=== PATIENT | female | born 1990 | race Two or more races ===

== ENCOUNTER 2020-05-23 11:45 | Emergency (ER) | payer OTHER ==
[2020-05-23 12:19] LABS: BASOPHILS # (AUTO) 0.1 10^3/uL (0.0-0.1); BASOPHILS % (AUTO) 0.5 %; EOSINOPHILS # (AUTO) 0.2 10^3/uL (0.0-0.7); EOSINOPHILS % (AUTO) 1.6 %; LYMPHOCYTES # (AUTO) 2.9 10^3/uL (1.5-3.5); LYMPHOCYTES % (AUTO) 21.4 %; MEAN CORPUSCULAR HEMOGLOBIN 29.8 pg (27.0-31.0); MEAN CORPUSCULAR HGB CONC 34.6 g/dL (32.0-36.0); MEAN CORPUSCULAR VOLUME 86.2 fL (81.0-99.0); MEAN PLATELET VOLUME 9.4 fL (7.9-10.8); MONOCYTES # (AUTO) 0.6 10^3/uL (0.0-1.0); MONOCYTES % (AUTO) 4.4 %; NEUTROPHILS # (AUTO) 9.5 10^3/uL (1.5-6.6); NEUTROPHILS % (AUTO) 71.4 %; PLT - PLATELET COUNT 414 10^3/uL (130-450); RED BLOOD COUNT 4.36 10^6/uL (4.20-5.40); WHITE BLOOD COUNT 13.3 x10^3/uL (4.8-10.8)
--- NOTE | 2020-05-23 12:27 | ED Physician Documentation ---
PD HPI FEMALE - Stated complaint Stated Complaint: FEMALE - Chief complaint Chief Complaint: Abd Pain - History obtained from History obtained from: Patient - History of Present Illness Timing - onset: How many hours ago (about 1 1/2) Timing - duration: Minutes (had some mucous and red blood vaginally after awakening this morning about 10 am, noted about a pads worth of blood in toilet. Does not have pad on now, and has not noted any vaginal bleeding enroute or while here. No abd pains.) Timing - details: Abrupt onset, Now resolved Associated symptoms: Vaginal bleeding. No: Fever, Abdominal pain, Back pain, Vaginal discharge, Dysuria Contributing factors: (6-8 weeks by dates. was not remembering exact date of LMP.) Similar symptoms before: Has not had sx before Recently seen: Not recently seen (has first OB appt tomorrow.) Review of Systems Constitutional: denies: Fever Nose: denies: Rhinorrhea / runny nose, Congestion Throat: denies: Sore throat Respiratory: denies: Cough GI: denies: Abdominal Pain, Nausea, Vomiting, Diarrhea : reports: Vaginal bleeding (brief this morning), Now EGA. denies: Dysuria, Discharge Neurologic: denies: Generalized weakness, Near syncope PD PAST MEDICAL HISTORY - Past Medical History Past Medical History: No - Allergies Allergies/Adverse Reactions: Allergies Allergy/AdvReac Type Severity Reaction Status Date / Time No Known Drug Allergies Allergy Verified 05/23/20 11:48 PD ED PE NORMAL - Vitals Vital signs reviewed: Yes - General General: Alert and oriented X 3, No acute distress, Well developed/nourished - Neck Neck: Supple, no meningeal sign, No adenopathy - Cardiac Cardiac: RRR, No murmur - Respiratory Respiratory: Clear bilaterally - Abdomen Abdomen: Normal bowel sounds, Soft, Non distended, No organomegaly - Female Female : Deferred, Other (bedside U?S showed GS intrauterine measured 7w4d. I did not see heart beat but common for these dates. No pelvic free fluid. ) - Back Back: No CVA TTP - Derm Derm: Normal color, Warm and dry - Extremities Extremities: Normal ROM s pain, No edema, No calf tenderness / cord - Neuro Neuro: Alert and oriented X 3, No motor deficit Results - Vitals Vitals: Vital Signs - 24 hr 05/23/20 05/23/20 05/23/20 11:48 11:55 13:15 Temperature 36.7 C 37.1 C 37.2 C Heart Rate 86 87 96 Respiratory 16 20 18 Rate Blood Pressure 138/83 H 131/73 H 124/85 H O2 Saturation 98 98 98 Oxygen O2 Source Room air - Labs Labs: Laboratory Tests 05/23/20 05/23/20 05/23/20 11:55 12:13 12:13 WBC 13.3 H RBC 4.36 Hgb 13.0 Hct 37.6 MCV 86.2 MCH 29.8 MCHC 34.6 RDW 13.0 Plt Count 414 MPV 9.4 Neut # (Auto) 9.5 H Lymph # (Auto) 2.9 [place] # (Auto) 0.6 Eos # (Auto) 0.2 Baso # (Auto) 0.1 Absolute Nucleated RBC 0.00 Nucleated RBC % 0.0 Sodium 134 L Potassium 4.1 Chloride 100 L Carbon Dioxide 26 Anion Gap 8.0 BUN 9 Creatinine 0.7 Estimated GFR (MDRD) 97 Glucose 92 Calcium 9.0 Total Bilirubin 0.6 AST 15 ALT 15 Alkaline Phosphatase 87 Total Protein 8.2 Albumin 3.7 Globulin 4.5 H Albumin/Globulin Ratio 0.8 L Lipase 25 HCG, Quant 20803.00 PD MEDICAL DECISION MAKING - ED course Complexity details: reviewed results (bedside U/S by me showing gestational sac measuring 7w4d. heart beat not seen but reasonable with age related. No pelvic free fluid seen. She has OB appt tomorrow so deferred formal U/S. ), considered differential, d/w patient Departure - Departure Disposition: 01 Home, Self Care Clinical Impression: Vaginal bleeding affecting early Condition: Stable Record reviewed to determine appropriate education?: Yes Follow-Up: Tessa Vasquez PA [Primary Care Provider] - [facility] [Provider Group] Comments: At this point your appears in the normal location in the uterus. Your blood count is good. Stay well-hydrated. Light activity is okay but nothing vigorous today. Tylenol if needed for pains or cramps. Follow-up with FINANCIAL MANAGER tomorrow as planned. Return if significant bleeding cramping pains or fever in the meanwhile. Discharge Date/Time: 05/23/20 13:19
[2020-05-23 12:32] LABS: ALBUMIN 3.7 g/dL (3.2-5.5); ALBUMIN/GLOBULIN RATIO 0.8 (1.0-2.2); BILIRUBIN,TOTAL 0.6 mg/dL (0.2-1.0); CREATININE 0.7 mg/dL (0.4-1.0); TOTAL PROTEIN 8.2 g/dL (6.7-8.2)
[2020-05-23] MEDS ORDERED: ACETAMINOPHEN 325 MG TABLET PO STA (13:03)
[2020-05-23 13:16] VITALS: BP 124/85
== END 2020-05-23 13:19 | disposition home or self-care (01) ==
LOC: ED 11:45
DX: O20.9 Hemorrhage in early pregnancy, unspecified (principal); Z3A.01 Less than 8 weeks gestation of pregnancy
CPT/HCPCS: 80053; 83690; 84702; 85025; 99283; 99284; A9270; 36415; 86900; 86901

== ENCOUNTER 2020-06-01 21:10 | Outpatient (CLI) | payer OTHER ==
--- NOTE | 2020-06-02 14:05 | Ultrasound Report ---
PROCEDURE: OB First Trimester INDICATIONS: , VAGINAL BLEEDING, 1ST TRIMESTER OUTSIDE/PRIOR DATING DATA: Last menstrual period (LMP): 03/18/2020. LMP-based estimated date of delivery (ACOSTA): 12/23/2020. First dating scan (date and location): 06/01/2020. Estimated date of delivery (ACOSTA) from first dating scan: 01/03/2021. TECHNIQUE: Real-time scanning was performed of the fetus and maternal pelvic organs, with image documentation. COMPARISON: None FINDINGS: Embryo: There is an intrauterine gestational sac seen, with a pole present, which measures 2.5 cm, which corresponds to an estimated gestational age of 9 weeks 0 days. cardiac activity is s een, with a measured heart rate of 187 bpm. No significant perigestational/subchorionic hemorrhage can be seen. A normal-appearing yolk sac is seen. Measurement variability in dating: +/- 4 weeks by LMP, +/- 7 days by mean sac diameter (use before 6 weeks gestation if crown-rump length not able to be measured), +/- 5 days by crown-rump length (6-12 weeks gestation). Maternal organs: Ovaries are unremarkable. Limited images through the kidneys demonstrate no hydron ephrosis. IMPRESSION: Single live intrauterine , without an anatomic abnormality identified. No significant discrepancy is found between the estimated gestational age based upon these images and the estimated gestational age based upon the given date of the last menstrual period. In this patient with a given history of first trimester bleeding, no significant subchorionic hemorrh age can be seen. Reviewed by: Earnest Ochoa MD on 06/02/2020 1:03 PM [place] Approved by: Earnest Ochoa MD on 06/02/2020 1:03 PM [place] Station ID: [id number]
--- NOTE | 2020-06-02 14:22 | Ultrasound Report ---
PROCEDURE: OB Transvaginal INDICATIONS: , VAGINAL BLEEDING, 1ST TRIMESTER OUTSIDE/PRIOR DATING DATA: Last menstrual p eriod (LMP): 03/18/2020. LMP-based estimated date of delivery (ACOSTA): 12/23/2020. First dating scan (date and location): 06/01/2020. Estimated date of delivery (ACOSTA) from first dating scan: 01/03/2021. TECHN IQUE: Real-time scanning was performed of the fetus and maternal pelvic organs, with image documentat ion. COMPARISON: None FINDINGS: Embryo: There is an intrauterine gestational sac seen, with a feta l pole present, which measures 2.5 cm, which corresponds to an estimated gestational age of 9 weeks 0 days. cardiac activity is seen, with a measured heart rate of 187 bpm. No significant perigest ational/subchorionic hemorrhage can be seen. A normal-appearing yolk sac is seen. Measurement variab ility in dating: +/- 4 weeks by LMP, +/- 7 days by mean sac diameter (use before 6 weeks gestation if crown-rump length not able to be measured), +/- 5 days by crown-rump length (6-12 weeks gestation). Maternal organs: Ovaries are unremarkable. Limited images through the kidneys demonstrate no hydrone phrosis. IMPRESSION: Single live intrauterine , without an anatomic abnormality identif ied. No significant discrepancy is found between the estimated gestational age based upon these imag es and the estimated gestational age based upon the given date of the last menstrual period. In this patient with a given history of first trimester bleeding, no significant subchorionic hemorrhage can be seen. Reviewed by: Earnest Ochoa MD on 06/02/2020 1:21 PM [place] Approved by: Earnest Ochoa MD on 06/02/2020 1:21 PM [place] Station ID: [id number]
== END 2020-06-01 21:11 | disposition home or self-care (01) ==
LOC: DI 21:10
PROVIDERS: ATTEND Obstetrics & Gynecology
DX: O46.91 Antepartum hemorrhage, unspecified, first trimester (principal); Z3A.09 9 weeks gestation of pregnancy
CPT/HCPCS: 76801; 76817

== ENCOUNTER 2020-07-03 09:45 | Outpatient (CLI) | payer OTHER ==
[2020-07-03 10:19] LABS: BASOPHILS # (AUTO) 0.1 10^3/uL (0.0-0.1); BASOPHILS % (AUTO) 0.4 %; EOSINOPHILS # (AUTO) 0.2 10^3/uL (0.0-0.7); EOSINOPHILS % (AUTO) 1.2 %; LYMPHOCYTES % (AUTO) 22.6 %; MEAN CORPUSCULAR HEMOGLOBIN 29.9 pg (27.0-31.0); MEAN CORPUSCULAR HGB CONC 34.5 g/dL (32.0-36.0); MEAN CORPUSCULAR VOLUME 86.8 fL (81.0-99.0); MEAN PLATELET VOLUME 9.7 fL (7.9-10.8); MONOCYTES # (AUTO) 0.7 10^3/uL (0.0-1.0); MONOCYTES % (AUTO) 5.4 %; NEUTROPHILS # (AUTO) 9.1 10^3/uL (1.5-6.6); NEUTROPHILS % (AUTO) 69.6 %; PLT - PLATELET COUNT 382 10^3/uL (130-450); RED BLOOD COUNT 4.01 10^6/uL (4.20-5.40); RED CELL DISTRIBUTION WIDTH 13.1 % (12.0-15.0)
[2020-07-03 12:27] LABS: HEMOGLOBIN A1c% 5.2 % (4.27-6.07)
[2020-07-04 12:03] LABS: HEPATITIS B SURFACE ANTIGEN NON-REACTIVE (NON-REACTIVE)
[2020-07-04 13:02] LABS: HIV AG/AB 4TH GEN NON-REACTIVE (NON-REACTIVE)
== END 2020-07-03 09:46 | disposition home or self-care (01) ==
LOC: LAB 09:45
PROVIDERS: ATTEND Obstetrics & Gynecology
DX: Z34.80 Encounter for supervision of other normal pregnancy, unspecified trimester (principal); Z36.89 Encounter for other specified antenatal screening
CPT/HCPCS: 36415; 81599; 83036; 84443; 85025; 86592; 86762; 86850; 86900; 86901; 87340; 87389

== ENCOUNTER 2020-08-22 06:50 | Outpatient (CLI) | payer OTHER ==
--- NOTE | 2020-08-22 10:40 | Ultrasound Report ---
PROCEDURE: OB Detailed Eval INDICATIONS: SCREENING OUTSIDE/PRIOR DATING DATA: Last menstrual period (LMP): 03/18/2020. LMP-based estimated date of delivery (ACOSTA): 12/23/2020. First dating scan (date and location): 06/01/2020. Estimated date of delivery (ACOSTA) from first dating scan: 01/03/2021. TECHNIQUE: Real-time scanning was performed of the fetus, with image documentation and biometric measurements. Endovaginal scanning: Performed COMPARISON: 06/01/2020. FINDINGS: General: A single living intrauterine gestation is present. Presentation: Vertex Placenta: Placental position is posterior, without previa. Amniotic fluid index: 14.1 cm normal 5-24 cm.. heart rate: 149 beats per minute. Maternal cervical canal: 3.4 cm long; normal length is 2.5 cm or more. biometrics: Biparietal diameter: 20 weeks 5 days Head circumference: 20 weeks 4 days Abdominal circumference: 20 weeks 4 days Femur length: To reveal weeks 5 days Estimated gestational age from initial scan: 20 weeks 6 days. Composite gestational age from present scan: 20 weeks 6 days Estimated weight and percentile: 396 g, 56th percentile Measurement variability in biometric dating: +/- 10 days from 12-20 weeks gestation, +/- 2 weeks from 20-30 weeks gestation, +/- 3 weeks at 30 weeks gestation or later. Anatomic survey: Neuro: Ventricles are normal at less than 10 mm. Cisterna magna is normal at 3-11 mm. Cerebellum i s normal in size and morphology. Nuchal skin fold: Normal at less than 6 mm between 14 and 20 weeks gestational age. Face: Nose and lips, facial profile are normal. Spine: No evidence for spina bifida. Heart: 4-chambered heart is present, with normal ventricular outflow tracts. Diaphragm: Diaphragm is intact. Stomach: Left-sided stomach is present. Kidneys: No hydronephrosis. Normal is less than 5 mm in 2nd trimester, less than 7 mm in 3rd trimester. Cord: 3 vessel cord has orthotopic insertion. Bladder: Normal in size. Extremities: All 4 extremities are visualized. IMPRESSION: 1. Single living intrauterine with appropriate interval growth. 2. Normal anatomic survey. Reviewed by: Esther Yuen MD, PhD on 08/22/2020 10:38 AM PST Approved by: Esther Yuen MD, PhD on 08/22/2020 10:38 AM PST Station ID: [id number]
== END 2020-08-22 06:51 | disposition home or self-care (01) ==
LOC: DI 06:50
PROVIDERS: ATTEND Obstetrics & Gynecology
DX: Z36.89 Encounter for other specified antenatal screening (principal)
CPT/HCPCS: 76811

== ENCOUNTER 2020-08-30 08:00 | Outpatient (CLI) | payer OTHER ==
[2020-08-30 21:55] LABS: CANDIDA GROUP DNA NEGATIVE (NEGATIVE); CANDIDA KRUSEI DNA NEGATIVE (NEGATIVE); TRICHOMONAS VAGINALIS DNA NEGATIVE (NEGATIVE)
== END 2020-08-30 08:01 | disposition home or self-care (01) ==
LOC: LAB.R 08:00
PROVIDERS: ATTEND Nurse Practitioner Obstetrics & Gynecology
DX: N89.8 Other specified noninflammatory disorders of vagina (principal)
CPT/HCPCS: 87086; 87661; 87801

== ENCOUNTER 2020-09-03 08:00 | Outpatient (CLI) | payer OTHER ==
[2020-09-03 17:38] LABS: BILIRUBIN,URINE NEGATIVE (NEGATIVE); GLUCOSE, URINE (UA) NEGATIVE (NEGATIVE); KETONES,URINE (UA) NEGATIVE (NEGATIVE); LEUKOCYTE ESTERASE, URINE NEGATIVE (NEGATIVE); NITRITE,URINE NEGATIVE (NEGATIVE); OCCULT BLOOD,URINE SMALL (NEGATIVE); PH,URINE 5.5 PH (5.0-7.5); PROTEIN,URINE NEGATIVE (NEGATIVE); UROBILINOGEN,URINE 0.2 (NORMAL) E.U./dL (NORMAL)
[2020-09-03 17:54] LABS: CLARITY,URINE CLEAR (CLEAR)
[2020-09-03 17:55] LABS: BACTERIA,URINE Rare /HPF (None Seen); SQUAMOUS EPITHELIAL CELL,UR FEW Squamous (<= Few)
== END 2020-09-03 23:59 | disposition home or self-care (01) ==
LOC: LAB.R 08:00
PROVIDERS: ATTEND Obstetrics & Gynecology
DX: N89.8 Other specified noninflammatory disorders of vagina (principal)
CPT/HCPCS: 81001; 81599; 87086

== ENCOUNTER 2020-11-17 18:50 | Outpatient (CLI) | payer OTHER ==
--- NOTE | 2020-11-17 22:15 | Ultrasound Report ---
PROCEDURE: OB F/U or Repeat INDICATIONS: GESTATIONAL DIABETES, GROWTH OUTSIDE/PRIOR DATING DATA: Last menstrual period (LMP): 03/18/2020. LMP-based estimated date of delivery (ACOSTA): 12/23/2020. First dating scan (date and location): 06/01/2020. Estimated date of delivery (ACOSTA) from first dating scan: 01/03/2021. TECHNIQUE: Real-time scanning was performed of the fetus, with image documentation and biometric measurements. Endovaginal scanning: Not performed COMPARISON: 08/22/2020, 06/01/2020, FINDINGS: General: A single living intrauterine gestation is present. Presentation: Vertex Placenta: Placental position is posterior, without previa. Amniotic fluid index: 15.8 cm, 59th percentile for gestational age. Largest pocket 5.6 cm heart rate: 162 beats per minute. biometrics: Biparietal diameter: 8.5 cm, 34 weeks 3 days Head circumference: 30.8 cm, 34 weeks 3 days Abdominal circumference: 29.5 cm, 33 weeks 4 days Femur length: 6.4 cm, 33 weeks 1 day Estimated gestational age from initial scan: 33 weeks 2 days. Composite gestational age from present scan: 33 weeks 6 days Estimated weight and percentile: 2238 g, 52nd percentile Measurement variability in biometric dating: +/- 10 days from 12-20 weeks gestation, +/- 2 weeks from 20-30 weeks gestation, +/- 3 weeks at 30 weeks gestation or more. Other: Not applicable. IMPRESSION: Single living intrauterine fetus in vertex presentation. Normal THOMAS Expected interval growth. Reviewed by: Johnnie Ames MD on 11/17/2020 10:14 PM PST Approved by: Johnnie Ames MD on 11/17/2020 10:14 PM PST Station ID: [id number]
== END 2020-11-17 18:51 | disposition home or self-care (01) ==
LOC: DI 18:50
PROVIDERS: ATTEND Obstetrics & Gynecology
DX: O24.419 Gestational diabetes mellitus in pregnancy, unspecified control (principal); Z3A.33 33 weeks gestation of pregnancy

== ENCOUNTER 2020-12-07 18:49 | Outpatient (CLI) | payer OTHER ==
--- NOTE | 2020-12-07 22:05 | Ultrasound Report ---
PROCEDURE: OB Biophysical Profile INDICATIONS: GESTATIONAL DIABETES OUTSIDE/PRIOR DATING DATA: Last menstrual period (LMP): 03/18/2020. LMP-based estimated date of delivery (ACOSTA): 12/23/2020. First dating scan (date and location): 06/01/2020. Estimated date of delivery (ACOSTA) from first dating scan: 01/03/2021. TECHNIQUE: Real-time scanning was performed of the fetus, with image documentation and biometric nona surements. Biophysical profile was also obtained. Endovaginal scanning: Performed COMPARISON: 06/01/2020, 08/22/2020 and 11/17/2020. FINDINGS: General: A single living intrauterine gestation is present. Presentation: Vertex Placenta: Placental position is posterior, without previa. Amniotic fluid index: 14.4 cm, normal finding 11 24 cm. heart rate: 146 beats per minute. Maternal cervical canal: Not evaluated. Estimated gestational age from initial scan: 36 weeks 1 day. Biophysical profile: Tone: 2 points. Movement: 2 points. Respiration: 0 points. Largest pocket of fluid: 2 points (largest pocket 5.1 cm). Umbilical artery Doppler: SD ratio 2.0-2.85 IMPRESSION: 1. Single living intrauterine gestation. 2. Normal amniotic fluid index. 3. Biophysical score 6/8 with 0 points for respiration. 4. Normal cord Doppler. Reviewed by: Esther Yuen MD, PhD on 12/07/2020 10:04 PM PST Approved by: Esther Yuen MD, PhD on 12/07/2020 10:04 PM PST Station ID: [id number]
== END 2020-12-07 18:50 | disposition home or self-care (01) ==
LOC: DI 18:49
PROVIDERS: ATTEND Obstetrics & Gynecology
DX: O24.419 Gestational diabetes mellitus in pregnancy, unspecified control (principal); Z3A.36 36 weeks gestation of pregnancy

== ENCOUNTER 2020-12-09 14:55 | Outpatient (CLI) | payer OTHER ==
[2020-12-09 15:32] VITALS: BP 138/83
--- NOTE | 2020-12-09 16:58 | Ultrasound Report ---
PROCEDURE: OB Biophysical Profile INDICATIONS: GDM, previous BPP 03/26 OUTSIDE/PRIOR DATING DATA: Last menstrual period (LMP): 03/18/2020. LMP-based estimated date of delivery (ACOSTA): 12/23/2020. First dating scan (date and location): 814 2. Estimated date of delivery (ACOSTA) from first dating scan: 01/03/2021. TECHNIQUE: Real-time scanning was performed of the fetus, with image documentation. Biophysical pro file was also obtained. COMPARISON: 12/07/2020, 11/17/2020, 08/22/2020, 06/01/2020 FINDINGS: General: A single live intrauterine gestation is present. Presentation: Cephalic Placenta: Placental position is posterior, without previa. Amniotic fluid index: 12.7 cm, 40 for gestational age. heart rate: 145 beats per minute. Maternal cervical canal: Not seen Biophysical profile: Tone: 2 points. Movement: 2 points. Respiration: 2 points. Largest pocket of fluid: 2 points. (3.8 cm) Umbilical artery Doppler: 2.3, 2.3 IMPRESSION: Normal biophysical profile, 8/8 points. Note: Concordant preliminary findings given by the ccie upon the completion of the examination to Dr. North at 4:30 PM on 12/09/2020. Reviewed by: Earnest Ochoa MD on 12/09/2020 3:56 PM [place] Approved by: Earnest Ochoa MD on 12/09/2020 3:56 PM [place] Station ID: [id number]
--- NOTE | 2020-12-17 22:40 | PROCEDURE REPORT ---
- HPI Diagnosis/Indication for NST: Gestational Diabetes Current EDU 01/03/21 Gestation 36 Weeks and 3 Days 3 Para 2 Vital Signs Temperature 99.5 F 12/09/20 15:26 Heart Rate 112 H 12/09/20 15:26 Respiratory Rate 17 12/09/20 15:26 Blood Pressure 141/97 H 12/09/20 15:26 O2 Saturation 100 12/09/20 15:26 Temperature 99.5 F 12/09/20 15:26 Heart Rate 112 H 12/09/20 15:26 Respiratory Rate 17 12/09/20 15:26 Blood Pressure 138/83 H 12/09/20 15:32 O2 Saturation 100 12/09/20 15:26 - NST Procedure NST Procedure Start Date 12/09/20 Start Time 15:20 Stop Time 16:00 Vibroacoustic Stimulation Used No Patient States EFM 145 mod lacey 15x15 accels no decels TOCO: irreg - Results and Plan Findings/Impression: 30 yo at 36+ 3 wga with affected by gestational diabetes here for NST and BPP NST: Cat I tracing BPP 8/8 Mild range BP normal on repeat FU with continued weekly BPP DX: IUP at 36+3 Gestational diabetes
== END 2020-12-09 16:45 | disposition home or self-care (01) ==
LOC: WFO 14:55 → FBP 14:58 → WFO 16:45
PROVIDERS: ATTEND Obstetrics & Gynecology
DX: O24.419 Gestational diabetes mellitus in pregnancy, unspecified control (principal); Z3A.36 36 weeks gestation of pregnancy
CPT/HCPCS: 59025

== ENCOUNTER 2020-12-12 07:00 | Outpatient (CLI) | payer OTHER | END 2020-12-12 23:59 | disposition home or self-care (01) | LOC: LAB.R 07:00 | PROVIDERS: ATTEND Obstetrics & Gynecology | DX: Z36.85 Encounter for antenatal screening for Streptococcus B (principal) | CPT/HCPCS: 87797 ==

== ENCOUNTER 2020-12-15 18:49 | Outpatient (CLI) | payer OTHER ==
--- NOTE | 2020-12-16 08:52 | Ultrasound Report ---
PROCEDURE: OB Biophysical Profile INDICATIONS: GESTATIONAL DIABETES OUTSIDE/PRIOR DATING DATA: Last menstrual period (LMP): 03/18/2020. LMP-based estimated date of delivery (ACOSTA): 12/23/2020. First dating scan (date and location): 06/01/2020. Estimated date of delivery (ACOSTA) from first dating scan: 01/03/2021. TECHNIQUE: Real-time scanning was performed of the fetus, with image documentation and biometric nona surements. Biophysical profile was also obtained. Endovaginal scanning: No COMPARISON: Ultrasound examination dated 12/09/2020 FINDINGS: General: A single living intrauterine gestation is present. Presentation: Cephalic Placenta: Placental position is posterior, without previa. Amniotic fluid index: 14.3 cm, 55th percentile for gestational age. heart rate: 135 beats per minute. Maternal cervical canal: 1.1 cm long; normal length is 2.5 cm or more. Biophysical profile: Tone: 2 points. Movement: 2 points. Respiration: 0 points. Largest pocket of fluid: 2 points. Umbilical artery Doppler: 2.3, 2.2. Distal and local artery not seen. IMPRESSION: 1. Single living intrauterine gestation. 2. Biophysical profile score of 6/8 with no points for respiration. 3. Shortened cervix. 4. Preliminary findings were discussed with Dr. Mclain by the sander portable machine on 12/15/2020 at 2020 hours. Reviewed by: Nela Mcdaniel MD on 12/16/2020 7:50 AM [place] Approved by: Nela Mcdaniel MD on 12/16/2020 7:50 AM [place] Station ID: [id number]
== END 2020-12-15 18:50 | disposition home or self-care (01) ==
LOC: DI 18:49
PROVIDERS: ATTEND Obstetrics & Gynecology
DX: O26.879 Cervical shortening, unspecified trimester (principal); Z3A.00 Weeks of gestation of pregnancy not specified

== ENCOUNTER 2020-12-16 11:24 | Outpatient (CLI) | payer OTHER ==
[2020-12-16 12:01] VITALS: BP 125/81
--- NOTE | 2020-12-16 12:23 | PROCEDURE REPORT ---
- HPI Diagnosis/Indication for NST: Gestational Diabetes (37.3 WEEKS, GDM on metromrin 1000 mg at bedtime. yesterday pt had a BPP 03/26. No respirations seen. Last NST was early in the week. Pt reports Fasting 95's, 1 hour less then 140.) Current 3 Para 2 Vital Signs Temperature 36.7 C 12/16/20 11:38 Heart Rate 96 12/16/20 11:38 Respiratory Rate 17 12/16/20 11:38 Blood Pressure 125/81 H 12/16/20 11:38 O2 Saturation 100 12/16/20 11:38 Temperature 36.7 C 12/16/20 11:38 Heart Rate 96 12/16/20 11:38 Respiratory Rate 17 12/16/20 11:38 Blood Pressure 125/81 H 12/16/20 11:38 O2 Saturation 100 12/16/20 11:38 - NST Procedure NST Procedure Start Date 12/16/20 Start Time 11:30 Stop Time 11:56 Vibroacoustic Stimulation Used No - Results and Plan Findings/Impression: reactive NST. GDM well controled Plan: Repeat BPP with umbilical volosimitry.
--- NOTE | 2020-12-16 15:15 | Ultrasound Report ---
PROCEDURE: OB Biophysical Profile INDICATIONS: gdm OUTSIDE/PRIOR DATING DATA: Last menstrual period (LMP): 03/18/2020. LMP-based estimated date of delivery (ACOSTA): 12/23/2020. First dating scan (date and location): 06/01/2020. Estimated date of delivery (ACOSTA) from first dating scan: 01/03/2021. TECHNIQUE: Real-time scanning was performed of the fetus, with image documentation and biometric nona surements. Biophysical profile was also obtained. Endovaginal scanning: No COMPARISON: 12/15/2020 ultrasound FINDINGS: General: A single living intrauterine gestation is present. Presentation: Cephalic Placenta: Placental position is posterior, without previa. Amniotic fluid index: 8.8 cm, 10th percentile for gestational age. heart rate: 141 beats per minute. Maternal cervical canal: Not well seen Biophysical profile: Tone: 2 points. Movement: 2 points. Respiration: 0 points. Largest pocket of fluid: 2 points. Umbilical artery Doppler: 2.3, 2.0 IMPRESSION: 1. Single living intrauterine gestation. 2. No change in biophysical profile score of 6/8, with 0 points given for respiration. Reviewed by: Nela Mcdaniel MD on 12/16/2020 2:14 PM [facility] Approved by: Nela Mcdaniel MD on 12/16/2020 2:14 PM [facility] Station ID: [id number]
== END 2020-12-16 14:45 | disposition home or self-care (01) ==
LOC: WFO 11:24 → FBP 11:28 → WFO 14:45
PROVIDERS: ATTEND Obstetrics & Gynecology
DX: O24.419 Gestational diabetes mellitus in pregnancy, unspecified control (principal); Z3A.37 37 weeks gestation of pregnancy
CPT/HCPCS: 59025

== ENCOUNTER 2020-12-17 15:31 | Outpatient (CLI) | payer OTHER ==
[2020-12-17 15:50] VITALS: BP 133/90
--- NOTE | 2020-12-17 18:06 | Ultrasound Report ---
PROCEDURE: OB Biophysical Profile INDICATIONS: BPP of 6/8 on 12/16/20, gdm OUTSIDE/PRIOR DATING DATA: Last menstrual period (LMP): 03/18/2020. LMP-based estimated date of delivery (ACOSTA): 12/23/2020. First dating scan (date and location): 06/01/2020. Estimated date of delivery (ACOSTA) from first dating scan: 01/03/2021. TECHNIQUE: Real-time scanning was performed of the fetus, with image documentation and biophysical p rofile. COMPARISON: 12/16/2020 FINDINGS: General: A single living intrauterine gestation is present. Presentation: Cephalic Placenta: Placental position is posterior, without previa. Amniotic fluid index: 12.8 cm, normal limits for gestational age. heart rate: 143 beats per minute. Maternal cervical canal: Not well seen in late stage of Biophysical profile: Tone: 2 points. Movement: 2 points. Respiration: 2 points. Largest pocket of fluid: 2 points. IMPRESSION: 1. Living late third trimester intrauterine . Vertex position. 2. Normal biophysical profile, 8 out of 8. Reviewed by: Pito Cordero MD on 12/17/2020 6:04 PM PST Approved by: Pito Cordero MD on 12/17/2020 6:04 PM PST Station ID: [id number]
--- NOTE | 2020-12-17 22:35 | PROCEDURE REPORT ---
- HPI Diagnosis/Indication for NST: Gestational Diabetes Current EDU 01/03/21 Gestation 37 Weeks and 4 Days Vital Signs Temperature 98.6 F 12/17/20 15:48 Heart Rate 107 H 12/17/20 15:48 Respiratory Rate 18 12/17/20 15:48 Blood Pressure 133/90 H 12/17/20 15:48 O2 Saturation 100 12/17/20 15:48 Temperature 98.6 F 12/17/20 15:48 Heart Rate 107 H 12/17/20 15:48 Respiratory Rate 18 12/17/20 15:48 Blood Pressure 133/90 H 12/17/20 15:48 O2 Saturation 100 12/17/20 15:48 - NST Procedure NST Procedure Start Date 12/17/20 Start Time 15:43 Stop Time 16:25 Vibroacoustic Stimulation Used No Patient States Movement Yes EFN 135 mod lacey 15x15 accels no decels TOCO: quiet - Results and Plan Findings/Impression: Patient is a 30 yo at 37+4 wga with affected by A2DM here for NST and repeat BPP Patient has anxiety about being in hospital settign with COVD. Declined twice weekly NST but agreed to weekly BPP. Last 2 BPPs were 6/8. Presents today for repeat BPP BPP was 8/8 NST Cat I tracing Will Fu in clinic in 2 days (Provider not informed of mild elevated BPs until well after discharge- will fu in clinic) DX: IUP at 37+4 wga Gestational diabetes
== END 2020-12-17 17:45 | disposition home or self-care (01) ==
LOC: WFO 15:31 → FBP 15:35 → WFO 17:45
PROVIDERS: ATTEND Obstetrics & Gynecology
DX: O24.419 Gestational diabetes mellitus in pregnancy, unspecified control (principal); O99.891 Other specified diseases and conditions complicating pregnancy; R03.0 Elevated blood-pressure reading, without diagnosis of hypertension; Z3A.37 37 weeks gestation of pregnancy
CPT/HCPCS: 59025

== ENCOUNTER 2020-12-18 10:32 | Outpatient (CLI) | payer OTHER ==
[2020-12-18 11:01] LABS: BASOPHILS % (AUTO) 0.4 %; EOSINOPHILS # (AUTO) 0.1 10^3/uL (0.0-0.7); EOSINOPHILS % (AUTO) 0.7 %; HCT - HEMATOCRIT 31.1 % (37.0-47.0); HGB - HEMOGLOBIN 10.2 g/dL (12.0-16.0); LYMPHOCYTES # (AUTO) 2.1 10^3/uL (1.5-3.5); MEAN CORPUSCULAR HEMOGLOBIN 28.1 pg (27.0-31.0); MEAN CORPUSCULAR HGB CONC 32.8 g/dL (32.0-36.0); MEAN CORPUSCULAR VOLUME 85.7 fL (81.0-99.0); MEAN PLATELET VOLUME 9.5 fL (7.9-10.8); MONOCYTES # (AUTO) 0.5 10^3/uL (0.0-1.0); MONOCYTES % (AUTO) 5.1 %; NEUTROPHILS # (AUTO) 7.6 10^3/uL (1.5-6.6); NEUTROPHILS % (AUTO) 73.3 %; PLT - PLATELET COUNT 349 10^3/uL (130-450); RED BLOOD COUNT 3.63 10^6/uL (4.20-5.40); RED CELL DISTRIBUTION WIDTH 13.7 % (12.0-15.0); WHITE BLOOD COUNT 10.3 x10^3/uL (4.8-10.8)
== END 2020-12-18 10:33 | disposition home or self-care (01) ==
LOC: LAB 10:32
PROVIDERS: ATTEND Obstetrics & Gynecology
DX: Z01.812 Encounter for preprocedural laboratory examination (principal); O34.211 Maternal care for low transverse scar from previous cesarean delivery; Z20.822 Contact with and (suspected) exposure to COVID-19; Z3A.38 38 weeks gestation of pregnancy
CPT/HCPCS: 36415; 80053; 85025

== ENCOUNTER 2020-12-20 05:31 | Inpatient (IN) | payer OTHER ==
--- NOTE | 2020-12-19 21:15 | HISTORY & PHYSICAL EXAMINATION ---
HPI - Admitted From Admitted from: Direct admit - History Obtained From Records Reviewed: Old records reviewed - History of Present Illness HPI Comment/Other: 30 yo at 38+1 wga here for repeat CS and bilateral salpingectomy. No change in health hx snce time of prior exam. Prior eam noted below. Endorses FM. Denies LOF/VB/CTX. Confirms desire for sterilization Patient was seen in [facility] 3 times over the last 5 days for recurrent BPP of 68 Last BPP was 8/. Review of her triage pesentations show several presentations with BPs in mild range. Provider had not been contacted on these occasions and Pre E eval was not completed. Patient voices concern over status given recurrent suboptimal assessments Also, FBG rising with 5/7 out of range. BF and lunch generally ok and dinner has one elevated. Patient does report eating dinner later. Reviewed that she meets criteria for GHTN and as such,, should be delivered at 37 weeks. Patient is agreeable to plan and wants to move forward with delivery. Consents obtained today. 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 PE: GEN: NAD HEENT: NCAT CV: RRR RESP: CTAB ABD: gravid. S&NT/ND NEURO: A&O PSYCH: appropriate affect EFM 130 mod lacey 15x15 accels no decel TOCO: quiet Impression & Recommendations: Problem # 1: Supervision high risk , third trimester (ICD-V23.9) ([id number]-S31.93) Cat I tracing Proceed with CS and BTL GDM: Metformin to 1000 mg with dinner Glucola- ordered but did not complete -Consider early Glucola at 16 weeks -ordered but was not completed -OPting to profile instead Provided with equipement for home glucometer. FBG were elevated with only minor PP elevations -Recommend twice weekly NST and weekly THOMAS. Patient wants to avoid coming into hospital Once weekly BPP acceptable High level of anxiety regarding COVID. Reviewed import of NST and patient is more open to it -Growth US 11/17/20 EFW 52%ile DATING: LMP 03/18/2020 gives ACOSTA of 12/23/2020. US on 06/01/2020 at 9w0d gives ACOSTA of 01/03/2021; definitive dating. HbA1c 5.2% TSH wnl A pos/Rubella equivocal Genetic screening:Discussed with partner. Declined Declines carrier screening. FAS: CL 3.4, posterior, 3VC, EFW 56%ile Flu- declined Tdap declined HSV: Takes acyclovir for cold sores. -vaginal cultures collected; negative - Serologies ordered for next blood drawn. Has not had blood drawn as declined glucola/avoiding facilitiy. -Rx for valacyclovir provided. GBS neg Desires BTL. Signed [facility] consents at 29 weeks Mode of delivery: Repeat low transverse with BTL. 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: positive: section Social & Family Hx - Social History Does the pt smoke?: No Smoking Status: Never smoker Does the pt drink ETOH?: No Does the pt have substance abuse?: No Meds/Allgy - Allergies Allergies/Adverse Reactions: Allergies Allergy/AdvReac Type Severity Reaction Status Date / Time No Known Drug Allergies Allergy Verified 05/23/20 11:48 Review of Systems - Other Findings Other Findings: As per HPI, otherwise remaining systems are negative Impression/Plan - Problem List Problem List: Reviewed risks/benefits/alternatives to and BTL Risks include, but are not limited to, bleeding, infection, damage to neatby tissue and organs. On average, EBL of up to 1 liter is considered within normal limits for CS. Risks of blood transfusion include infection Risk of HIV 1/2million nationwide Risk of Hepatitis 1/1 million Risks of transfusion reaction Infection risk moderate given clean/contaminated nature of procedure and IV antibiotics will be given. Damage to nearby tissue and organs including bladder, bowel, ureters, blood vessels, nerves, and fetus Damage may be noted intra-op and may be delayed until after the procedure is com plete Reviewed management of complications and efforts to avoid such outcomes but reviewed that they may occur despite our best efforts Confirmed that sterlization is desired Patient understands that tubal ligation is an irreversible process that will result in future infertility Written informed consent obtained.
[2020-12-20] MEDS ORDERED: LACTATED RINGERS 1,000 ML IV ONE ×2 (05:38→10:07)
[2020-12-20] MEDS ORDERED: SODIUM CHLORIDE FLUSH 0.9% 10 ML SYRINGE IVP PRN ×2 (05:38→10:14)
[2020-12-20] MEDS ORDERED: CITRIC ACID/SODIUM CITRATE 15 ML UDC PO ONE (05:39)
[2020-12-20] MEDS ORDERED: ceFAZolin 2 GM in SODIUM CHLORIDE 0.9% MINIBAG 100 ML IV SCH (05:39)
--- NOTE | 2020-12-20 07:06 | ANESTHESIA ---
Pre-Anesthesia VS, & Labs - Diagnosis previous c/s, desires sterilization - Procedure repeat c/s with btl Vital Signs: Temp Pulse Resp BP Pulse Ox 37.0 C 87 18 137/77 H 12/20/20 05:48 12/20/20 05:48 12/20/20 05:48 12/20/20 05:48 Height: 5 ft Weight (kg): 105.687 kg Body Mass Index: 45.5 BMI Classification: Morbidly Obese - NPO >8 hours - Is Patient ?: Yes Home Medications and Allergies Active Medications Cefazolin Sodium 2 gm/ Sodium (Chloride) 100 mls @ 200 mls/hr IV Q8H HARDY Sodium Chloride (Sodium Chloride Flush 0.9% 10 Ml Syringe) 10 ml IVP PRN PRN PRN Reason: NEEDED PER PROVIDER ORDERS acyclovir, metformin Allergies/Adverse Reactions: Allergies Allergy/AdvReac Type Severity Reaction Status Date / Time No Known Drug Allergies Allergy Verified 05/23/20 11:48 Anes History & Medical History - Anesthetic History Anesthesia Complications: reports: No previous complications - Medical History Cardiovascular: reports: Hypertension (gestational) Pulmonary: reports: None, Asthma (childhood) Gastrointestinal: reports: Pancreatitis Urinary: reports: None Neuro: reports: None Musculoskeletal: reports: None Endocrine/Autoimmune: reports: Other (gestational diabetes) Blood Disorders: reports: None Skin: reports: None Smoking Status: Never smoker Psychosocial: reports: No issues indicated - Surgical History General: reports: Cholecystectomy Gynecologic: reports: section - Obstetrical History : 3 Parity: 2 Events: positive: Gestational diabetes, Other (gestational hypertension) Exam General: Alert, Oriented x3, Cooperative, No acute distress Dental: WNL Mouth Openin Fingerbreadth Neck Mobility: Normal Mallampati classification: II Thyromental Distance: 4-6 cm Mental/Cognitive Status: Alert/Oriented X3, Normal for patient Plan Anesthesia Type: Spinal Consent for Procedure(s) Verified and Reviewed: Yes Code Status: Attempt Resuscitation ASA classification: 2-Mild systemic disease Is this case an emergency?: No
[2020-12-20] MEDS ORDERED: NALOXONE 0.4 MG/ML VIAL IVP PRN ×2 (07:13→09:08)
[2020-12-20] MEDS ORDERED: fentaNYL 100 MCG/2 ML VIAL IVP PRN (07:13)
[2020-12-20] MEDS ORDERED: ATROPINE ABBOJECT 1 MG/10 ML SYRINGE IVP PRN (07:13)
[2020-12-20] MEDS ORDERED: ONDANSETRON 4 MG/2 ML VIAL IVP PRN ×2 (07:13→09:08)
[2020-12-20] MEDS ORDERED: HYDROmorphone 0.5 MG/0.5 ML SYRINGE IVP PRN (07:13)
[2020-12-20] MEDS ORDERED: MORPHINE 2 MG/ML CARPUJECT IVP PRN (07:13)
[2020-12-20] MEDS ORDERED: OXYTOCIN 10 UNIT/ML VIAL ONE (07:30)
[2020-12-20] MEDS ORDERED: PHENYLEPHRINE 10 MG/ML VIAL ONE (07:30)
[2020-12-20] MEDS ORDERED: LIDOCAINE 2%-EPI 1:100000 20 ML MDV ONE (07:32)
[2020-12-20] MEDS ORDERED: BUPIVACAINE 0.5% PF 30 ML VIAL ONE (07:32)
[2020-12-20] MEDS ORDERED: fentaNYL 100 MCG/2 ML VIAL ONE (07:37)
[2020-12-20] MEDS ORDERED: MORPHINE PF 5 MG/10 ML VIAL ONE (07:38)
[2020-12-20] MEDS ORDERED: miSOPROStoL 200 MCG TABLET ONE (07:41)
[2020-12-20] MEDS ORDERED: METHYLERGONOVINE 0.2 MG/ML VIAL ONE (07:41)
[2020-12-20] MEDS ORDERED: CARBOPROST TROMETHAMINE 250 MCG/ML AMP IM ONE (07:41)
[2020-12-20] MEDS ORDERED: MORPHINE PF 5 MG/10 ML VIAL IT ONE (07:54)
[2020-12-20] MEDS ORDERED: fentaNYL 100 MCG/2 ML VIAL IT ONE (07:54)
[2020-12-20] MEDS ORDERED: LACTATED RINGERS 1,000 ML IV SCH ×2 (08:00→11:00)
[2020-12-20] MEDS ORDERED: ONDANSETRON 4 MG/2 ML VIAL ONE (08:47)
[2020-12-20] MEDS ORDERED: GLYCOPYRROLATE 1 MG/5 ML VIAL ONE (08:47)
[2020-12-20 08:59] LABS: CORONAVIRUS 229E-RESP PCR NOT DETECTED; CORONAVIRUS HKU1-RESP PCR NOT DETECTED; CORONAVIRUS NL63-RESP PCR NOT DETECTED; CORONAVIRUS OC43-RESP PCR NOT DETECTED; HUMAN METAPNEUMOVIRUS NOT DETECTED; INFLUENZA A- RESP PCR PANEL NOT DETECTED; RHINOVIRUS/ENTEROVIRUS NOT DETECTED; SARS-CoV-2 -RESP PCR PANEL NOT DETECTED
[2020-12-20 09:00] LABS: B. PARAPERTUSSIS- RESP PCR PAN NOT DETECTED; B. PERTUSSIS- RESP PCR PANEL NOT DETECTED; C. PNEUMONIAE- RESP PCR PANEL NOT DETECTED; INFLUENZA B - RESP PCR PANEL NOT DETECTED; M. PNEUMONIAE- RESP PCR PANEL NOT DETECTED; PARAINFLUENZA VIRUS 1 NOT DETECTED; PARAINFLUENZA VIRUS 2 NOT DETECTED; PARAINFLUENZA VIRUS 3 NOT DETECTED; PARAINFLUENZA VIRUS 4 NOT DETECTED; RSV- RESP PCR PANEL NOT DETECTED
[2020-12-20] MEDS ORDERED: NALBUPHINE 10 MG/ML AMP IVP PRN (09:08)
[2020-12-20] MEDS ORDERED: LIDOCAINE 2%-EPI 1:100000 20 ML MDV SUBQ ONE ×2 (09:41)
[2020-12-20] MEDS ORDERED: BUPIVACAINE 0.5% PF 30 ML VIAL INFIL ONE ×2 (09:41)
[2020-12-20] MEDS ORDERED: KETOROLAC 30 MG/ML VIAL ONE (09:58)
[2020-12-20] MEDS ORDERED: oxyCODONE 5 MG TABLET PO PRN (10:14)
[2020-12-20] MEDS ORDERED: OXYTOCIN/SODIUM CHLORIDE 500 ML IV PRN (10:14)
[2020-12-20] MEDS ORDERED: SIMETHICONE CHEW 80 MG TABLET PO PRN (10:14)
[2020-12-20] MEDS ORDERED: ONDANSETRON ODT 4 MG TABLET TL PRN (10:14)
--- NOTE | 2020-12-20 10:27 | OPERATIVE REPORT ---
Operative Report - General Admit Date: 12/20/20 Procedure Date: 12/20/20 Planned Procedure: Repeat low transverse Bilateral salpingectomy Pre-Op Diagnosis: IUP at 38+0 wga, GHTN, A2DM, desires sterilization Procedure Performed: Repeat low transverse Bilateral salpingectomy Post Op Diagnosis: Same and delivery of term gestation - Procedure Note Primary Surgeon: Bella North MD Secondary Surgeon: ZOHREH Uribe Anesthesia Provider: Christiano Hurley CRNA Anesthesia Technique: Spinal Pathology: Placenta for routine discard Bilateral fallopian tubes sent as one specimen IV Fluids (mL): 1,100 Estimated Blood Loss (mL): 500 Urine Output (mL): 60 Indications: Patient is a 30 yo at 38+0 wga with a complicated by 2 prior c- sections and gestational diabetes. She has had 3 BPPs in the last week that returned with 03/26. She has also developed mild range hypertension on multiple occasions more than 4 hours apart, giving the diagnosis of gestational hypertension. For these reasons, we are proceeding with scheduled repeat low transverse . She desires sterilization and this was confirmed prior to and during the procedure. Findings: Normal appearing uterus and bilateral fallopian tubes and ovaries. Female in vertex presentation with Apgars of 9/10 and weight pending. True knot noted in the umbilical cord. Complications: None - Other Other Information/Narrative: Risks benefits and alternatives of the procedure were discussed. Written informed consent was obtained. Patient was taken to the operating room where spinal anesthesia was placed and found to be adequate. She was prepped and d raped in the usual sterile fashion in the dorsal supine position with a leftward tilt. [place] catheter was in place. SCDs were in place and activated. Cefazolin 2 g IV was given as a preoperative antibiotic. Preoperative timeout was performed. A total of 20 cc of 1% lidocaine with epinephrine was injected into the suture line prior to making the incision. A Pfannenstiel incision was made in the skin with a scalpel and carried through the underlying layer of fascia in a combination of sharp and blunt dissection and cautery. The fascia was incised in the midline, and the incision was exte nded laterally with the cautery and Hatch scissors. The superior aspect of the fascial incision was grasped with the Sebas clamps, elevated, and the underlying rectus muscles were dissected off bluntly and sharply using the scalpel. Attention was then turned to the inferior aspect of the incision which in a similar fashion was grasped, tented up with Sebas clamps, and the underlying rectus muscles dissected off bluntly and sharply using Hatch scissors. The rectus muscles were then in the midline. The peritoneum was identified, tented up, and entered bluntly. The peritoneal incision was extended superiorly and inferiorly with good visualization of the bladder. The bladder that blade was then inserted. A bladder flap was not created. The lower uterine segment of the uterus was identified, and incised in a transverse fashion with a scalpel. The uterus was entered bluntly. The uterine incision was extended in a craniocaudal fashion by manual stretch. The bladder blade was removed. The infant was delivered from from vertex position. Baby was wrapped in a warm sterile towel. Delayed cord clamping was performed. After cessation of pulsations, the cord was clamped x2 and cut. The was handed off to the waiting pediatricians. The placenta was removed with manual expression. The uterus was exteriorized and cleared of all clots clots and debris via manual swipe using [employer] x2. The uterine incision was then repaired in a running locked fashion using 0 Vicryl suture. The incision was reinforced with a running imbricating layer again using 0-Vicryl suture. Excellent hemostasis was obtained. Attention was then turned to the salpingectomy portion of the procedure. The left Fallopian tube was grasped with Sena clamps and elevated. It was r esected from the underlying mesosalpinx with the LigaSure bipolar sealing and cutting device until the insertion point at the uterine cornua was met. At that point, the fallopian tube was sealed and transected at ints insertion point into the uterine cornua. The tube was removed from the field. This process was repeated on the right side. Both tubes were sent in a single specimen to Pathology. The uterus was returned to the abdomen. The gutters were cleared of all clots and debris. The pelvis was irrigated with warm normal saline. The uterine defect was well visualized in normal anatomic position it was noted again to be hemostatic. The peritoneum was then reapproximated with 2-0 Vicryl in a running fashion. The rectus muscles were then reapproximated using interrupted [id number] sutures using 2-0 Chromic. Good hemostasis was noted. The fascia was then closed using 0 Vicryl in a running fashion starting from the left lateral edge to the midline. A second suture was used to close the fascia in a running fashion starting from the right lateral edge and meeting in the midline, agian using 0-Vicryl. The subcutaneous tissue was then irrigated and closed using 2-0 chromic in a running subcutaneous suture. Skin was closed in a running subcuticular suture using 4-0 Monocryl. A total of 20 cc of 1% lidocaine mixed with 0.25% bupivicaine with epinephrine was injected into the suture line prior to making the incisionSteri-Strips were applied to reinforce the incision and dressing was applied. Procedure was well-tolerated and without complication. Sponge lap and needle counts were correct x2. Patient was taken to recovery room in stable condition. ZOHREH Uribe, assisted with retraction, delivery of the , and suturing.
--- NOTE | 2020-12-20 10:47 | ANESTHESIA POST OP EVALUATION ---
Anesthesia Post Eval - Post Anesthesia Eval Vitals: Last Vital Signs Temp 36.6 C 12/20/20 10:30 Pulse 80 12/20/20 10:30 Resp 19 12/20/20 10:30 BP 121/66 12/20/20 10:30 Pulse Ox 99 12/20/20 10:30 CV Function Including HR & BP: positive: Stable Pain Control: positive: Satisfactory Nausea & Vomiting: positive: Negative Mental Status: positive: Baseline Respiratory Status: Airway Patent Hydration Status: Satisfactory Anesthesia Complications: positive: None
[2020-12-20] MEDS: ACETAMINOPHEN 500 MG TABLET PO SCH ×2 (13:59→21:44)
[2020-12-20] MEDS: KETOROLAC 30 MG/ML VIAL IVP SCH ×2 (15:27→21:46)
[2020-12-20] MEDS ORDERED: ceFAZolin 1 GM in SODIUM CHLORIDE 0.9% MINIBAG 100 ML IV SCH (16:00)
[2020-12-20] MEDS ORDERED: SODIUM CHLORIDE FLUSH 0.9% 10 ML SYRINGE IVP SCH (17:00)
[2020-12-20] MEDS: DOCUSATE SODIUM 100 MG CAPSULE PO SCH (21:44)
[2020-12-21] MEDS: KETOROLAC 30 MG/ML VIAL IVP SCH ×2 (03:37→07:35)
[2020-12-21 05:15] LABS: BASOPHILS % (AUTO) 0.3 %; EOSINOPHILS # (AUTO) 0.1 10^3/uL (0.0-0.7); EOSINOPHILS % (AUTO) 0.9 %; HCT - HEMATOCRIT 27.6 % (37.0-47.0); HGB - HEMOGLOBIN 8.9 g/dL (12.0-16.0); MEAN CORPUSCULAR HEMOGLOBIN 28.2 pg (27.0-31.0); MEAN CORPUSCULAR HGB CONC 32.2 g/dL (32.0-36.0); MEAN CORPUSCULAR VOLUME 87.3 fL (81.0-99.0); MEAN PLATELET VOLUME 9.7 fL (7.9-10.8); MONOCYTES # (AUTO) 0.8 10^3/uL (0.0-1.0); MONOCYTES % (AUTO) 8.6 %; NEUTROPHILS # (AUTO) 6.5 10^3/uL (1.5-6.6); NEUTROPHILS % (AUTO) 68.8 %; PLT - PLATELET COUNT 291 10^3/uL (130-450); RED BLOOD COUNT 3.16 10^6/uL (4.20-5.40); RED CELL DISTRIBUTION WIDTH 14.2 % (12.0-15.0); WHITE BLOOD COUNT 9.5 x10^3/uL (4.8-10.8)
[2020-12-21] MEDS: ACETAMINOPHEN 500 MG TABLET PO SCH ×3 (05:54→22:18)
[2020-12-21] MEDS: IBUPROFEN 600 MG TABLET PO SCH ×3 (09:27→22:20)
[2020-12-21] MEDS: DOCUSATE SODIUM 100 MG CAPSULE PO SCH ×2 (09:27→22:18)
--- NOTE | 2020-12-21 11:56 | PROVIDER PROGRESS NOTE ---
Subjective - Prog Note Date Prog Note Date: 12/21/20 Prog Note Time: 11:45 - Subjective Subjective: Patient has been up and ambulating. Tolerating po. Pain well managed. Voiding. No concerns. Desires discharge but baby is not approved for discharge. Objective - Vital Signs/Intake & Output Reviewed Vital Signs: Yes Vital Signs: Vital Signs x48h Temp Pulse Resp BP Pulse Ox 12/21/20 07:43 97.9 F 85 20 119/76 97 Intake & Output: Intake & Output 12/18/20 12/19/20 12/20/20 12/21/20 23:59 23:59 23:59 23:59 Intake Total 1350 500 Output Total 350 495 Balance 1000 5 - Objective General Appearance: positive: No acute distress Respiratory: positive: No respiratory distress Cardiovascular: positive: Other (RR) Peripheral Pulses: 2+ Radial (R), 2+ Radial (L), 2+ Dorsalis pedis (R), 2+ D orsalis pedis (L) Abdomen: positive: Non-tender, Other (FF below umbi. S&NT/ND. Dressing CDI. Removed and incision line CDI) Skin: positive: Color nml, Warm, Dry Extremities: positive: Non-tender, No pedal edema Neurologic/Psychiatric: positive: Oriented x3 - Lab Results Fish Bones: 12/21/20 05:13 Other Labs: Lab Results x24hrs 12/21/20 Range/Units 05:13 WBC 9.5 (4.8-10.8) x10^3/uL RBC 3.16 L (4.20-5.40) 10^6/uL Hgb 8.9 L (12.0-16.0) g/dL Hct 27.6 L (37.0-47.0) % MCV 87.3 (81.0-99.0) fL MCH 28.2 (27.0-31.0) pg MCHC 32.2 (32.0-36.0) g/dL RDW 14.2 (12.0-15.0) % Plt Count 291 (130-450) 10^3/uL MPV 9.7 (7.9-10.8) fL Neut # (Auto) 6.5 (1.5-6.6) 10^3/uL Lymph # (Auto) 2.0 (1.5-3.5) 10^3/uL Walker # (Auto) 0.8 (0.0-1.0) 10^3/uL Eos # (Auto) 0.1 (0.0-0.7) 10^3/uL Baso # (Auto) 0.0 (0.0-0.1) 10^3/uL Absolute Nucleated RBC 0.00 x10^3/uL Nucleated RBC % 0.0 /100WBC Assessment/Plan - Problem List (1) deliv NOS-unsp Impression: POD#1: Patient very anxious about being in the hospital during COVD Desires pm discharge Baby not cleared for DC Cont with routine postop care Anticipate DC home in am Routine DC instructions given
--- NOTE | 2020-12-21 12:03 | Discharge Plan ---
Discharge Plan Problem Reviewed?: Yes Disposition: Home, Self Care Condition: Good Prescriptions: Acetaminophen [Acetaminophen Extra Strength] 1,000 mg PO Q8H PRN #60 tablet PRN Reason: Pain Docusate Sodium 100Mg Capsule [Colace 100Mg Capsule] 100 - 200 mg PO BID PRN #60 cap PRN Reason: Constipation Ibuprofen [Motrin] 600 mg PO Q6H PRN #60 tab PRN Reason: Pain oxyCODONE [Roxicodone] 2.5 - 5 mg PO Q4H PRN #24 tablet PRN Reason: Severe Pain Diet: Regular Activity Restrictions: Additional Comments Shower Restrictions: Yes (ok to shower. No tub baths or hot tubs for 4 weeks) Driving Restrictions: Yes (No driving on narcotics) Additional Instructions or Follow Up instructions: Nothing in the vagina for 6 weeks: No intercourse, tampons, douching Call for: -Fever greater than 100.5 -Pain that does not improve with pain medication -Heavy bleeding in which you are soaking a pad an hour for 2 hours in a row -Incision becomes hot, hard, red, starts to open, or leaks foul smelling fluid No lifting more than 10# for 4 weeks No [address] while on narcotics Ok to shower. Let water run over the incision. Do not soap, scrub, or apply lotion. Pat dry with a clean towel or ab a chairman emeritus. The surgical stickers will start to peel off and you can remove them when they do. Otherwise, the provider will remove them at your one week follow-up appointment. OK to use an unscented sanitary napkin or clean washcloth to keep the incision dry if the belly folds over the incision. Ibuprofen 600 mg by mouth every 6 hours as needed for pain Acetaminophen 500-1000 mg by mouth every 8 hours as needed for pain Docusate 100-200 mg by mouth twice a day as needed for constipation Oxycodone 5 mg by mouth every 4 hours as needed for pain No Smoking: If you smoke, Please STOP! Call for help. Follow-up with: Licha North MD [Provider Admit Priv/Credential] -
[2020-12-22] MEDS: IBUPROFEN 600 MG TABLET PO SCH (04:13)
[2020-12-22] MEDS: ACETAMINOPHEN 500 MG TABLET PO SCH (06:25)
[2020-12-22 08:03] VITALS: BP 138/95
--- NOTE | 2020-12-22 08:36 | Labor Flowsheet ---
Labor Flowsheet Datetime Report Generated by CPN: 12/22/2020 08:36 Datetime: 12/22/2020 07:57 VITAL SIGNS NBP Sys/Aury/Mean (mmHg): 138 : 95 : 106 Pulse: 101 Datetime: 12/22/2020 04:15 SpO2 (%): 97 Datetime: 12/20/2020 05:45 Temperature (C): 37.0
--- NOTE | 2021-01-01 23:48 | DISCHARGE SUMMARY ---
"Discharge Summary Admit Date: 12/20/20 Discharge Date: 12/22/20 Discharging Provider: Can Condition at Discharge: Good Discharge Disposition: 01 Home, Self Care - DIAGNOSES Admission Diagnoses: IUP at 38+1 wga Hx of prior Desires sterilization Gestational diabetes Gestational hypertension Discharge Diagnoses with Status of Each Condition: Same and delivery of term gestation - HPI History of Present Illness: Patient is a 30 yo at 38+0 wga with a complicated by 2 prior c- sections and gestational diabetes. She has had 3 BPPs in the last week that returned with 03/26. She has also developed mild range hypertension on multiple occasions more than 4 hours apart, giving the diagnosis of gestational hyperten jeremias. For these reasons, we are proceeding with scheduled repeat low transverse . She desires sterilization and this was confirmed prior to and during the procedure. - CONSULTS | PROCEDURES Procedures: Repeat low transverse Bilateral salpingectomy - HOSPITAL COURSE Hospital Course: Patient was admitted for the aforementioned procedure. and bilateral salpingectomy were completed without complication and procedure was well tolerated. Post operative course was uncomplicated. Patient delivered a viable female infant with Apgars of 9/10 from vertex presentation. Patient was meeting goals for discharge by the evening of POD#1 and requested discharge due to anxiety regarding possible COVID exposure while in-patient. Discharge information and medications were prepared. was kept an additional night for observation. Patient and were discharged on POD#2. Routine discharge instructions were given. Rh positive - ALLERGIES Allergies/Adverse Reactions: Allergies Allergy/AdvReac Type Severity Reaction Status Date / Time No Known Drug Allergies Allergy Verified 05/23/20 11:48 - MEDICATIONS Home Medications: Ambulatory Orders Medication Instructions Recorded Confirmed Acetaminophen [Acetaminophen Extra 1,000 mg PO Q8H PRN #60 tablet 12/21/20 Strength] Docusate Sodium 100Mg Capsule 100 - 200 mg PO BID PRN #60 cap 12/21/20 [Colace 100Mg Capsule] Ibuprofen [Motrin] 600 mg PO Q6H PRN #60 tab 12/21/20 oxyCODONE [Roxicodone] 2.5 - 5 mg PO Q4H PRN #24 tablet 12/21/20 - LABS Result Diagrams: 12/21/20 05:13 - FOLLOW UP Follow Up: [address] North - TIME SPENT Time Spent in Discharge (Minutes): 30"
== END 2020-12-22 08:35 | disposition home or self-care (01) | DRG 785 ==
LOC: FBP 05:31
PROVIDERS: ADMIT Obstetrics & Gynecology; ATTEND Obstetrics & Gynecology
PROC: 0UT70ZZ Resection of Bilateral Fallopian Tubes, Open Approach (ICD-10-PCS; 2020-12-20)
PROC: 10D00Z1 Extraction of Products of Conception, Low, Open Approach (ICD-10-PCS; principal; 2020-12-20 07:30)
DX: O13.4 Gestational [pregnancy-induced] hypertension without significant proteinuria, complicating childbirth (principal); O24.425 Gestational diabetes mellitus in childbirth, controlled by oral hypoglycemic drugs; O34.211 Maternal care for low transverse scar from previous cesarean delivery; N85.8 Other specified noninflammatory disorders of uterus; Z3A.38 38 weeks gestation of pregnancy; Z37.0 Single live birth; F41.9 Anxiety disorder, unspecified; O99.345 Other mental disorders complicating the puerperium; F41.8 Other specified anxiety disorders
CPT/HCPCS: 0202U; 36415; 85025; 86850; 86900; 86901; A9270; J2274; J7120

== ENCOUNTER 2021-05-07 08:00 | Outpatient (CLI) | payer OTHER ==
[2021-05-11 00:12] LABS: HSV 1 DNA NOT DETECTED; HSV 2 DNA NOT DETECTED; SOURCE FACE
== END 2021-05-07 23:59 | disposition home or self-care (01) ==
LOC: LAB.N 08:00
PROVIDERS: ATTEND Physician Assistant Medical
DX: B35.8 Other dermatophytoses (principal)
CPT/HCPCS: 87529

== ENCOUNTER 2021-12-06 08:45 | Outpatient (CLI) | payer OTHER | END 2021-12-06 23:59 | disposition home or self-care (01) | LOC: LAB 08:45 | PROVIDERS: ATTEND Physician Assistant | DX: U07.1 COVID-19 (principal) ==

== ENCOUNTER 2022-01-05 08:33 | Outpatient (CLI) | payer OTHER ==
[2022-01-05 09:09] LABS: BASOPHILS # (AUTO) 0.1 10^3/uL (0.0-0.1); BASOPHILS % (AUTO) 0.6 %; EOSINOPHILS # (AUTO) 0.4 10^3/uL (0.0-0.7); EOSINOPHILS % (AUTO) 4.5 %; HCT - HEMATOCRIT 38.9 % (37.0-47.0); HGB - HEMOGLOBIN 13.2 g/dL (12.0-16.0); LYMPHOCYTES # (AUTO) 2.3 10^3/uL (1.5-3.5); LYMPHOCYTES % (AUTO) 28.8 %; MEAN CORPUSCULAR HEMOGLOBIN 29.1 pg (27.0-31.0); MEAN CORPUSCULAR HGB CONC 33.9 g/dL (32.0-36.0); MEAN CORPUSCULAR VOLUME 85.7 fL (81.0-99.0); MONOCYTES # (AUTO) 0.6 10^3/uL (0.0-1.0); MONOCYTES % (AUTO) 7.5 %; NEUTROPHILS # (AUTO) 4.6 10^3/uL (1.5-6.6); NEUTROPHILS % (AUTO) 58.3 %; PLT - PLATELET COUNT 342 10^3/uL (130-450); RED BLOOD COUNT 4.54 10^6/uL (4.20-5.40); RED CELL DISTRIBUTION WIDTH 12.6 % (12.0-15.0); WHITE BLOOD COUNT 7.9 x10^3/uL (4.8-10.8)
[2022-01-05 09:25] LABS: ALBUMIN 3.8 g/dL (3.2-5.5); ALKALINE PHOSPHATASE 94 IU/L (42-121); ALT ALANINE AMINOTRANSFERASE 26 IU/L (10-60); AST ASPARTATE AMINOTRANSFERASE 20 IU/L (10-42); BILIRUBIN,TOTAL 0.4 mg/dL (0.2-1.0); BUN - BLOOD UREA NITROGEN 12 mg/dL (6-20); CALCIUM 8.5 mg/dL (8.5-10.3); CARBON DIOXIDE - CO2 28 mmol/L (21-32); CHLORIDE 101 mmol/L (101-111); CHOL/HDL RATIO 2.9 (<4.4); CHOLESTEROL 143 mg/dL; CREATININE 0.5 mg/dL (0.4-1.0); GFR - MDRD 142 (>89); GLUCOSE 104 mg/dL (70-100); HDL CHOLESTEROL 49 mg/dL; LDL CHOLESTEROL,CALCULATED 80 mg/dL; LDL/HDL RATIO 1.6 (<4.4); POTASSIUM 4.1 mmol/L (3.5-5.0); SODIUM 136 mmol/L (135-145); TOTAL PROTEIN 7.7 g/dL (6.7-8.2); TRIGLYCERIDES 70 mg/dL; VLDL CHOLESTEROL 14 mg/dL
[2022-01-05 09:37] LABS: THYROID STIMULATING HORMONE 2.08 uIU/mL (0.34-5.60)
[2022-01-05 10:43] LABS: HCG,QUALITATIVE BLOOD NEGATIVE
[2022-01-05 11:39] LABS: ESTIMATED AVERAGE GLUCOSE 108 mg/dL (70-100); HEMOGLOBIN A1c% 5.4 % (4.27-6.07)
== END 2022-01-05 08:34 | disposition home or self-care (01) ==
LOC: LAB 08:33
PROVIDERS: ATTEND Physician Assistant
DX: Z13.1 Encounter for screening for diabetes mellitus (principal); Z13.220 Encounter for screening for lipoid disorders; Z13.29 Encounter for screening for other suspected endocrine disorder; Z13.9 Encounter for screening, unspecified
CPT/HCPCS: 36415; 80053; 80061; 83036; 83721; 84443; 84703; 85025

== ENCOUNTER 2022-05-12 08:00 | Outpatient (CLI) | payer OTHER ==
[2022-05-12 20:52] LABS: BILIRUBIN,URINE NEGATIVE (NEGATIVE); GLUCOSE, URINE (UA) NEGATIVE (NEGATIVE); KETONES,URINE (UA) NEGATIVE (NEGATIVE); LEUKOCYTE ESTERASE, URINE TRACE (NEGATIVE); NITRITE,URINE NEGATIVE (NEGATIVE); OCCULT BLOOD,URINE SMALL (NEGATIVE); PH,URINE 5.5 PH (5.0-7.5); PROTEIN,URINE NEGATIVE (NEGATIVE); UROBILINOGEN,URINE 0.2 (NORMAL) E.U./dL (NORMAL)
[2022-05-12 21:02] LABS: BACTERIA,URINE Few /HPF (None Seen); CLARITY,URINE CLEAR (CLEAR); RBC,URINE 0-5 /HPF (0-5); SQUAMOUS EPITHELIAL CELL,UR RARE Squamous (<= Few)
[2022-05-12 22:57] LABS: BACTERIAL VAGINOSIS DNA NEGATIVE (NEGATIVE); CANDIDA GLABRATA DNA NEGATIVE (NEGATIVE); CANDIDA GROUP DNA NEGATIVE (NEGATIVE); CANDIDA KRUSEI DNA NEGATIVE (NEGATIVE); TRICHOMONAS VAGINALIS DNA NEGATIVE (NEGATIVE)
== END 2022-05-12 23:59 | disposition home or self-care (01) ==
LOC: LAB.N 08:00
PROVIDERS: ATTEND Physician Assistant Medical
DX: N89.8 Other specified noninflammatory disorders of vagina (principal); R30.0 Dysuria
CPT/HCPCS: 81001; 81514; 87086

== ENCOUNTER 2023-06-17 08:00 | Outpatient (CLI) | payer OTHER ==
[2023-06-17 20:40] LABS: BACTERIAL VAGINOSIS DNA NEGATIVE (NEGATIVE); CANDIDA GLABRATA DNA NEGATIVE (NEGATIVE); CANDIDA GROUP DNA POSITIVE (NEGATIVE); CANDIDA KRUSEI DNA NEGATIVE (NEGATIVE); TRICHOMONAS VAGINALIS DNA NEGATIVE (NEGATIVE)
== END 2023-06-17 23:59 | disposition home or self-care (01) ==
LOC: LAB.WCP 08:00
PROVIDERS: ATTEND Physician Assistant
DX: N89.9 Noninflammatory disorder of vagina, unspecified (principal)
CPT/HCPCS: 81514

== ENCOUNTER 2023-07-02 05:39 | Outpatient (CLI) | payer OTHER ==
[2023-07-02 05:58] LABS: BASOPHILS # (AUTO) 0.1 10^3/uL (0.0-0.1); BASOPHILS % (AUTO) 0.5 %; EOSINOPHILS # (AUTO) 0.4 10^3/uL (0.0-0.7); EOSINOPHILS % (AUTO) 3.6 %; HCT - HEMATOCRIT 39.1 % (37.0-47.0); HGB - HEMOGLOBIN 12.8 g/dL (12.0-16.0); LYMPHOCYTES # (AUTO) 3.7 10^3/uL (1.5-3.5); LYMPHOCYTES % (AUTO) 35.3 %; MEAN CORPUSCULAR HEMOGLOBIN 28.3 pg (27.0-31.0); MEAN CORPUSCULAR HGB CONC 32.7 g/dL (32.0-36.0); MEAN CORPUSCULAR VOLUME 86.5 fL (81.0-99.0); MEAN PLATELET VOLUME 9.2 fL (7.9-10.8); MONOCYTES # (AUTO) 0.7 10^3/uL (0.0-1.0); MONOCYTES % (AUTO) 6.3 %; NEUTROPHILS # (AUTO) 5.6 10^3/uL (1.5-6.6); PLT - PLATELET COUNT 400 10^3/uL (130-450); RED BLOOD COUNT 4.52 10^6/uL (4.20-5.40); RED CELL DISTRIBUTION WIDTH 12.9 % (12.0-15.0); WHITE BLOOD COUNT 10.3 x10^3/uL (4.8-10.8)
[2023-07-02 06:19] LABS: ALBUMIN 4.1 g/dL (3.2-5.5); ALBUMIN/GLOBULIN RATIO 1.3 (1.0-2.2); ALKALINE PHOSPHATASE 81 IU/L (42-121); ALT ALANINE AMINOTRANSFERASE 16 IU/L (10-60); AST ASPARTATE AMINOTRANSFERASE 16 IU/L (10-42); BILIRUBIN,TOTAL 0.3 mg/dL (0.2-1.0); BUN - BLOOD UREA NITROGEN 12 mg/dL (6-20); CALCIUM 9.5 mg/dL (8.5-10.3); CARBON DIOXIDE - CO2 30 mmol/L (21-32); CHLORIDE 102 mmol/L (101-111); CHOL/HDL RATIO 3.2 (<4.4); CHOLESTEROL 165 mg/dL; CREATININE 0.7 mg/dL (0.6-1.3); GFR - MDRD 95 (>89); GLUCOSE 110 mg/dL (74-104); HDL CHOLESTEROL 51 mg/dL; LDL CHOLESTEROL,CALCULATED 80 mg/dL; LDL/HDL RATIO 1.6 (<4.4); POTASSIUM 3.8 mmol/L (3.5-4.5); SODIUM 137 mmol/L (135-145); TOTAL PROTEIN 7.3 g/dL (6.4-8.9); TRIGLYCERIDES 168 mg/dL (48-352); VLDL CHOLESTEROL 34 mg/dL
[2023-07-02 06:31] LABS: THYROID STIMULATING HORMONE 4.58 uIU/mL (0.34-5.60)
== END 2023-07-02 05:40 | disposition home or self-care (01) ==
LOC: LAB 05:39
PROVIDERS: ATTEND Physician Assistant
DX: N89.8 Other specified noninflammatory disorders of vagina (principal); Z13.1 Encounter for screening for diabetes mellitus; Z13.220 Encounter for screening for lipoid disorders; Z13.29 Encounter for screening for other suspected endocrine disorder
CPT/HCPCS: 36415; 80053; 80061; 83721; 84443; 85025

== ENCOUNTER 2024-04-05 08:00 | Outpatient (CLI) | payer OTHER ==
[2024-04-06 17:22] LABS: BACTERIAL VAGINOSIS DNA NEGATIVE (NEGATIVE); CANDIDA GLABRATA DNA NEGATIVE (NEGATIVE); CANDIDA GROUP DNA NEGATIVE (NEGATIVE); CANDIDA KRUSEI DNA NEGATIVE (NEGATIVE); TRICHOMONAS VAGINALIS DNA NEGATIVE (NEGATIVE)
== END 2024-04-05 23:59 | disposition home or self-care (01) ==
LOC: LAB.WC 08:00
PROVIDERS: ATTEND Obstetrics & Gynecology
DX: N89.8 Other specified noninflammatory disorders of vagina (principal)
CPT/HCPCS: 81514

== ENCOUNTER 2024-04-12 20:59 | Outpatient (CLI) | payer OTHER ==
--- NOTE | 2024-04-13 09:39 | Ultrasound Report ---
PROCEDURE: Pelvic w/Transvaginal INDICATIONS: MENORRHAGIA TECHNIQUE: Real-time scanning was performed of the pelvic organs, with image documentation. Additional endovagi nal scanning was necessary due to incomplete visualization of the adnexal and endometrial structures by transabdominal scanning. COMPARISON: None. FINDINGS: Uterus: Uterus is anteverted and normal in size at 8.8 x 6.9 x 5.4 cm. The myometrium is heterogene ous. The endometrium measures 9 mm in combined thickness. Ovaries: The right ovary measures 2.6 x 1.6 x 2.3 cm, with a calculated ovarian volume of 4.8 cc. T he left ovary measures 2.6 x 2.0 x 2.1 cm, with a calculated ovarian volume of 5.4 cc. The ovaries h ave a normal sonographic appearance. Less than 12 follicles can be seen in each ovary. No adnexal m asses are seen. No cystic lesions measuring greater than 3 cm. Other: No pathologic free abdominal or pelvic fluid. IMPRESSION: Pelvic ultrasound without acute sonographic abnormalities. No findings to explain patient's menorrhag ia. Reviewed by: Jeffery Shaffer MD on 04/13/2024 9:38 AM PDT Approved by: Jeffery Shaffer MD on 04/13/2024 9:38 AM PDT Station ID: [id number]
== END 2024-04-12 21:00 | disposition home or self-care (01) ==
LOC: DI 20:59
PROVIDERS: ATTEND Obstetrics & Gynecology
DX: N92.0 Excessive and frequent menstruation with regular cycle (principal); N92.6 Irregular menstruation, unspecified

== ENCOUNTER 2024-04-17 07:23 | Outpatient (CLI) | payer OTHER ==
[2024-04-17 08:04] LABS: HCT - HEMATOCRIT 38.5 % (37.0-47.0); HGB - HEMOGLOBIN 12.5 g/dL (12.0-16.0); MEAN CORPUSCULAR HEMOGLOBIN 28.5 pg (27.0-31.0); MEAN CORPUSCULAR HGB CONC 32.5 g/dL (32.0-36.0); MEAN CORPUSCULAR VOLUME 87.7 fL (81.0-99.0); MEAN PLATELET VOLUME 9.6 fL (7.9-10.8); RED BLOOD COUNT 4.39 10^6/uL (4.20-5.40); RED CELL DISTRIBUTION WIDTH 13.3 % (12.0-15.0)
[2024-04-17 08:12] LABS: ALBUMIN 4.2 g/dL (3.2-5.5); ALBUMIN/GLOBULIN RATIO 1.2 (1.0-2.2); ALKALINE PHOSPHATASE 77 IU/L (42-121); ALT ALANINE AMINOTRANSFERASE 23 IU/L (10-60); AST ASPARTATE AMINOTRANSFERASE 19 IU/L (10-42); BILIRUBIN,TOTAL 0.4 mg/dL (0.2-1.0); BUN - BLOOD UREA NITROGEN 17 mg/dL (6-20); CALCIUM 9.3 mg/dL (8.5-10.3); CARBON DIOXIDE - CO2 28 mmol/L (21-32); CHLORIDE 104 mmol/L (101-111); CHOL/HDL RATIO 2.8 (<4.4); CHOLESTEROL 156 mg/dL; CREATININE 0.8 mg/dL (0.6-1.3); GFR - MDRD 81 (>89); GLUCOSE 104 mg/dL (74-104); HDL CHOLESTEROL 55 mg/dL; LDL CHOLESTEROL,CALCULATED 82 mg/dL; LDL/HDL RATIO 1.5 (<4.4); SODIUM 137 mmol/L (135-145); TOTAL PROTEIN 7.8 g/dL (6.4-8.9); TRIGLYCERIDES 94 mg/dL (48-352); VLDL CHOLESTEROL 19 mg/dL
[2024-04-17 09:30] LABS: ESTIMATED AVERAGE GLUCOSE 97 mg/dL (70-100)
== END 2024-04-17 07:24 | disposition home or self-care (01) ==
LOC: LAB 07:23
PROVIDERS: ATTEND Obstetrics & Gynecology
DX: E78.1 Pure hyperglyceridemia (principal); R03.0 Elevated blood-pressure reading, without diagnosis of hypertension; R73.01 Impaired fasting glucose; N92.0 Excessive and frequent menstruation with regular cycle; N89.8 Other specified noninflammatory disorders of vagina
CPT/HCPCS: 36415; 80053; 80061; 83036; 83721; 84443; 85027